=== PATIENT | female | born 1965 | race Caucasian/White ===

== ENCOUNTER 2018-12-25 20:36 | Emergency (ER) | payer SELFPAY ==
[~2018-12-25] VITALS: Ht 162.6 cm; Wt 71.7 kg
[~2018-12-25 20:36] MED LIST: CALCIUM CARBON500 MG PO; MULTI-VITAMIN1 EACH PO; ULTRAM 50MG50 MG PO; VITAMIN D3 PO
--- OUTSIDE RECORDS SUMMARY | 2018-12-25 20:39 | XMS REPORT ---
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 Allergies, Adverse Reactions, Alerts Allergy Name Allergy Type Status Severity Reaction(s) Onset Date Inactive Date Treating Clinician Comments No Known Allergies DA Active U 2018-09-05 00:00:00 No Known Allergies DA Active U 2012-04-12 00:00:00 Medications This patient has no known medications. Encounters Start Date/Time End Date/Time Encounter Type Admission Type Attending Clinicians Care Facility Care Department Encounter ID 2019-02-10 00:00:00 2019-02-10 00:00:00 Outpatient [facility] [id number] 2019-01-14 00:00:00 2019-01-14 00:00:00 Outpatient [facility] [id number] 2018-12-15 10:12:08 2018-12-15 10:12:08 Outpatient [facility] [id number] 2018-12-15 08:41:22 2018-12-15 08:41:22 Outpatient [facility] [id number] 2018-12-15 00:00:00 2018-12-15 00:00:00 Outpatient [facility] [id number] 2018-10-22 08:25:24 2018-10-22 08:25:24 Outpatient [facility] [id number] 2018-10-22 07:53:02 2018-10-22 07:53:02 Outpatient [facility] [id number] 2018-10-19 09:42:13 2018-10-19 09:42:13 Outpatient [facility] [id number] 2018-10-14 10:49:53 2018-10-14 10:49:53 Outpatient [facility] [id number] 2018-10-14 09:51:42 2018-10-14 09:51:42 Outpatient [facility] [id number] Results Test Description Test Time Test Comments Text Results Atomic Results Result Comments CBC W/MANUAL DIFF 2018-09-05 15:45:00 WHITE BLOOD CELL (test code=WBC) 4.8 K/mm3 4.5-12.5 RED BLOOD CELL (test code=RBC) 4.86 mill/mm3 3.7-5.2 HEMOGLOBIN (test code=HGB) 13.8 gram/dL 11.5-15.5 HEMATOCRIT (test code=HCT) 44.4 % 36.0-46.0 MEAN CELL VOLUME (test code=MCV) 91.4 fL 80-98 MEAN CELL HGB (test code=MCH) 28.4 picogram 27.0-33.0 MEAN CELL HGB CONCETRATION (test code=MCHC) 31.1 gram/dL 33.0-36.0 RED CELL DISTRIBUTION WIDTH (test code=RDW) 13.6 % 11.6-16.2 RED CELL DISTRIBUTION WIDTH SD (test code=RDW-SD) 46.1 fL 37.0-51.0 PLATELET COUNT (test code=PLT) 148 K/mm3 150-450 MEAN PLATELET VOLUME (test code=MPV) 12.5 fL 6.7-11.0 IMMATURE GRANULOCYTE % (test code=IG%) 0.2 % 0.0-5.0 NUCLEATED RBC % (test code=NRBC%) 0.0 % 0-0 NEUTROPHIL # (test code=NT#) 1.97 K/mm3 1.8-7.7 IMMATURE GRANULOCYTE # (test code=IG#) 0.01 x10 3/uL 0-0.03 LYMPHOCYTE # (test code=LY#) 1.83 K/mm3 1.0-5.0 MONOCYTE # (test code=MO#) 0.92 K/mm3 0-0.8 EOSINOPHIL # (test code=EO#) 0.08 K/mm3 0.0-0.5 BASOPHIL # (test code=BA#) 0.03 K/mm3 0.0-0.2 NUCLEATED RBC # (test code=NRBC#) 0.00 K/mm3 0.0-0.1 MANUAL DIFF REQUIRED (test code=MDIFF) YES STAIN ACCEPTABILITY (test code=STN ACCEPTABLE) STAIN ACCEPTABLE TOTAL CELLS COUNTED (test code=TCC) 100 #CELLS SEGMENTED NEUTROPHILS (test code=SEG) 32 % 39-69 LYMPHOCYTE (test code=LYMPH) 49 % 25-55 REACTIVE LYMPH (test code=RELYMPH) 4 % MONOCYTE (test code=MON) 12 % 0-10 EOSINOPHIL (test code=EOS) 1 % 0.0-5.0 BASOPHIL (test code=BASO) 2 % 0-1.0 POIKILOCYTOSIS (test code=POIK) 1+ ANISOCYTOSIS (test code=ANISO) 1+ PLATELET ESTIMATE (test code=PLTEST) ADEQUATE PLATELET MORPHOLOGY (test code=PLTMORPH) SIZE VARIABLE URINALYSIS [id number] 13:16:00* Test Item Value Reference Range Comments UA COLOR (test code=COLU) LIGHT YELLOW YELLOW UA APPEARANCE (test code=APPU) SLIGHTLY CLOUDY CLEAR UA GLUCOSE DIPSTICK (test code=DGLUU) NEGATIVE mg/dL NEGATIVE UA BILIRUBIN DIPSTICK (test code=BILU) NEGATIVE mg/dL NEGATIVE UA KETONE DIPSTICK (test code=KETU) Negative mg/dL NEGATIVE UA SPECIFIC GRAVITY (test code=SGU) 1.008 1.001-1.035 UA BLOOD DIPSTICK (test code=FRANSICO) Negative NEGATIVE UA PH DIPSTICK (test code=ELISABET) 9.0 5.0-8.0 UA PROTEIN DIPSTICK (test code=PROU) Negative mg/dL NEGATIVE UA UROBILINIOGEN DIPSTICK (test code=URO) NEGATIVE mg/dL NEGATIVE UA NITRITE DIPSTICK (test code=ESTEBAN) NEGATIVE NEGATIVE UA LEUKOCYTE ESTERASE W REFLEX (test code=LEUUR) NEGATIVE NEGATIVE UA WBC (test code=WBCU) 0-5 #/HPF 0-5 UA RBC (test code=RBCU) 0-2 #/HPF 0-5 UA EPITHELIAL CELLS (test code=EPIU) FEW per HPF FEW UA BACTERIA (test code=BACU) FEW #/HPF NONE UA MUCUS (test code=MUCU) FEW #/LPF FEW Urine Source? Clean CatchUR HCG [id number] 13:16:00* Test Item Value Reference Range Comments UR HCG QUAL (test code=HCGQLU) NEGATIVE This HCGQL test is NOT applicable for MALE patients.Check with nurse about probable order error.If Tumor Marker Test needed, nurse should order test "HCGTU"(Test #550.16562) Urine Source? Clean CatchURINALYSIS [id number] 12:40:00* Test Item Value Reference Range Comments UA COLOR (test code=COLU) LIGHT YELLOW YELLOW UA APPEARANCE (test code=APPU) SLIGHTLY CLOUDY CLEAR UA GLUCOSE DIPSTICK (test code=DGLUU) NEGATIVE mg/dL NEGATIVE UA BILIRUBIN DIPSTICK (test code=BILU) NEGATIVE mg/dL NEGATIVE UA KETONE DIPSTICK (test code=KETU) Negative mg/dL NEGATIVE UA SPECIFIC GRAVITY (test code=SGU) 1.008 1.001-1.035 UA BLOOD DIPSTICK (test code=FRANSICO) Negative NEGATIVE UA PH DIPSTICK (test code=ELISABET) 9.0 5.0-8.0 UA PROTEIN DIPSTICK (test code=PROU) Negative mg/dL NEGATIVE UA UROBILINIOGEN DIPSTICK (test code=URO) NEGATIVE mg/dL NEGATIVE UA NITRITE DIPSTICK (test code=ESTEBAN) NEGATIVE NEGATIVE UA LEUKOCYTE ESTERASE W REFLEX (test code=LEUUR) NEGATIVE NEGATIVE UA WBC (test code=WBCU) per HPF 0-5 Urine Source? Clean CatchUR HCG [id number] 12:40:00* Test Item Value Reference Range Comments UR HCG QUAL (test code=HCGQLU) NEGATIVE This HCGQL test is NOT applicable for MALE patients.Check with nurse about probable order error.If Tumor Marker Test needed, nurse should order test "HCGTU"(Test #550.37200) Urine Source? Clean CatchCBC W/MANUAL [id number] 12:37:00* Test Item Value Reference Range Comments WHITE BLOOD CELL (test code=WBC) 4.8 K/mm3 4.5-12.5 RED BLOOD CELL (test code=RBC) 4.86 mill/mm3 3.7-5.2 HEMOGLOBIN (test code=HGB) 13.8 gram/dL 11.5-15.5 HEMATOCRIT (test code=HCT) 44.4 % 36.0-46.0 MEAN CELL VOLUME (test code=MCV) 91.4 fL 80-98 MEAN CELL HGB (test code=MCH) 28.4 picogram 27.0-33.0 MEAN CELL HGB CONCETRATION (test code=MCHC) 31.1 gram/dL 33.0-36.0 RED CELL DISTRIBUTION WIDTH (test code=RDW) 13.6 % 11.6-16.2 RED CELL DISTRIBUTION WIDTH SD (test code=RDW-SD) 46.1 fL 37.0-51.0 PLATELET COUNT (test code=PLT) 148 K/mm3 150-450 MEAN PLATELET VOLUME (test code=MPV) 12.5 fL 6.7-11.0 IMMATURE GRANULOCYTE % (test code=IG%) 0.2 % 0.0-5.0 NUCLEATED RBC % (test code=NRBC%) 0.0 % 0-0 NEUTROPHIL # (test code=NT#) 1.97 K/mm3 1.8-7.7 IMMATURE GRANULOCYTE # (test code=IG#) 0.01 x10 3/uL 0-0.03 LYMPHOCYTE # (test code=LY#) 1.83 K/mm3 1.0-5.0 MONOCYTE # (test code=MO#) 0.92 K/mm3 0-0.8 EOSINOPHIL # (test code=EO#) 0.08 K/mm3 0.0-0.5 BASOPHIL # (test code=BA#) 0.03 K/mm3 0.0-0.2 NUCLEATED RBC # (test code=NRBC#) 0.00 K/mm3 0.0-0.1 MANUAL DIFF REQUIRED (test code=MDIFF) YES STAIN ACCEPTABILITY (test code=STN ACCEPTABLE) TOTAL CELLS COUNTED (test code=TCC) #CELLS SEGMENTED NEUTROPHILS (test code=SEG) % 39-69 LYMPHOCYTE (test code=LYMPH) % 25-55 MONOCYTE (test code=MON) % 0-10 EOSINOPHIL (test code=EOS) % 0.0-5.0 CABOT RINGS (test code=CAB) MORPHOLOGY COMMENT (test code=MOC) PLATELET ESTIMATE (test code=PLTEST) PLATELET MORPHOLOGY (test code=PLTMORPH) CBC W/MANUAL [id number] 12:37:00* Test Item Value Reference Range Comments WHITE BLOOD CELL (test code=WBC) 4.8 K/mm3 4.5-12.5 RED BLOOD CELL (test code=RBC) 4.86 mill/mm3 3.7-5.2 HEMOGLOBIN (test code=HGB) 13.8 gram/dL 11.5-15.5 HEMATOCRIT (test code=HCT) 44.4 % 36.0-46.0 MEAN CELL VOLUME (test code=MCV) 91.4 fL 80-98 MEAN CELL HGB (test code=MCH) 28.4 picogram 27.0-33.0 MEAN CELL HGB CONCETRATION (test code=MCHC) 31.1 gram/dL 33.0-36.0 RED CELL DISTRIBUTION WIDTH (test code=RDW) 13.6 % 11.6-16.2 RED CELL DISTRIBUTION WIDTH SD (test code=RDW-SD) 46.1 fL 37.0-51.0 PLATELET COUNT (test code=PLT) 148 K/mm3 150-450 MEAN PLATELET VOLUME (test code=MPV) 12.5 fL 6.7-11.0 IMMATURE GRANULOCYTE % (test code=IG%) 0.2 % 0.0-5.0 NUCLEATED RBC % (test code=NRBC%) 0.0 % 0-0 NEUTROPHIL # (test code=NT#) 1.97 K/mm3 1.8-7.7 IMMATURE GRANULOCYTE # (test code=IG#) 0.01 x10 3/uL 0-0.03 LYMPHOCYTE # (test code=LY#) 1.83 K/mm3 1.0-5.0 MONOCYTE # (test code=MO#) 0.92 K/mm3 0-0.8 EOSINOPHIL # (test code=EO#) 0.08 K/mm3 0.0-0.5 BASOPHIL # (test code=BA#) 0.03 K/mm3 0.0-0.2 NUCLEATED RBC # (test code=NRBC#) 0.00 K/mm3 0.0-0.1 MANUAL DIFF REQUIRED (test code=MDIFF) YES STAIN ACCEPTABILITY (test code=STN ACCEPTABLE) TOTAL CELLS COUNTED (test code=TCC) #CELLS SEGMENTED NEUTROPHILS (test code=SEG) % 39-69 LYMPHOCYTE (test code=LYMPH) % 25-55 MONOCYTE (test code=MON) % 0-10 EOSINOPHIL (test code=EOS) % 0.0-5.0 CABOT RINGS (test code=CAB) MORPHOLOGY COMMENT (test code=MOC) PLATELET ESTIMATE (test code=PLTEST) PLATELET MORPHOLOGY (test code=PLTMORPH) CBC W/MANUAL [id number] 12:37:00* Test Item Value Reference Range Comments WHITE BLOOD CELL (test code=WBC) 4.8 K/mm3 4.5-12.5 RED BLOOD CELL (test code=RBC) 4.86 mill/mm3 3.7-5.2 HEMOGLOBIN (test code=HGB) 13.8 gram/dL 11.5-15.5 HEMATOCRIT (test code=HCT) 44.4 % 36.0-46.0 MEAN CELL VOLUME (test code=MCV) 91.4 fL 80-98 MEAN CELL HGB (test code=MCH) 28.4 picogram 27.0-33.0 MEAN CELL HGB CONCETRATION (test code=MCHC) 31.1 gram/dL 33.0-36.0 RED CELL DISTRIBUTION WIDTH (test code=RDW) 13.6 % 11.6-16.2 RED CELL DISTRIBUTION WIDTH SD (test code=RDW-SD) 46.1 fL 37.0-51.0 PLATELET COUNT (test code=PLT) 148 K/mm3 150-450 MEAN PLATELET VOLUME (test code=MPV) 12.5 fL 6.7-11.0 IMMATURE GRANULOCYTE % (test code=IG%) 0.2 % 0.0-5.0 NUCLEATED RBC % (test code=NRBC%) 0.0 % 0-0 NEUTROPHIL # (test code=NT#) 1.97 K/mm3 1.8-7.7 IMMATURE GRANULOCYTE # (test code=IG#) 0.01 x10 3/uL 0-0.03 LYMPHOCYTE # (test code=LY#) 1.83 K/mm3 1.0-5.0 MONOCYTE # (test code=MO#) 0.92 K/mm3 0-0.8 EOSINOPHIL # (test code=EO#) 0.08 K/mm3 0.0-0.5 BASOPHIL # (test code=BA#) 0.03 K/mm3 0.0-0.2 NUCLEATED RBC # (test code=NRBC#) 0.00 K/mm3 0.0-0.1 MANUAL DIFF REQUIRED (test code=MDIFF) YES STAIN ACCEPTABILITY (test code=STN ACCEPTABLE) TOTAL CELLS COUNTED (test code=TCC) #CELLS SEGMENTED NEUTROPHILS (test code=SEG) % 39-69 LYMPHOCYTE (test code=LYMPH) % 25-55 MONOCYTE (test code=MON) % 0-10 EOSINOPHIL (test code=EOS) % 0.0-5.0 MORPHOLOGY COMMENT (test code=MOC) PLATELET ESTIMATE (test code=PLTEST) PLATELET MORPHOLOGY (test code=PLTMORPH) CBC W/MANUAL [id number] 12:37:00* Test Item Value Reference Range Comments WHITE BLOOD CELL (test code=WBC) 4.8 K/mm3 4.5-12.5 RED BLOOD CELL (test code=RBC) 4.86 mill/mm3 3.7-5.2 HEMOGLOBIN (test code=HGB) 13.8 gram/dL 11.5-15.5 HEMATOCRIT (test code=HCT) 44.4 % 36.0-46.0 MEAN CELL VOLUME (test code=MCV) 91.4 fL 80-98 MEAN CELL HGB (test code=MCH) 28.4 picogram 27.0-33.0 MEAN CELL HGB CONCETRATION (test code=MCHC) 31.1 gram/dL 33.0-36.0 RED CELL DISTRIBUTION WIDTH (test code=RDW) 13.6 % 11.6-16.2 RED CELL DISTRIBUTION WIDTH SD (test code=RDW-SD) 46.1 fL 37.0-51.0 PLATELET COUNT (test code=PLT) 148 K/mm3 150-450 MEAN PLATELET VOLUME (test code=MPV) 12.5 fL 6.7-11.0 IMMATURE GRANULOCYTE % (test code=IG%) 0.2 % 0.0-5.0 NUCLEATED RBC % (test code=NRBC%) 0.0 % 0-0 NEUTROPHIL # (test code=NT#) 1.97 K/mm3 1.8-7.7 IMMATURE GRANULOCYTE # (test code=IG#) 0.01 x10 3/uL 0-0.03 LYMPHOCYTE # (test code=LY#) 1.83 K/mm3 1.0-5.0 MONOCYTE # (test code=MO#) 0.92 K/mm3 0-0.8 EOSINOPHIL # (test code=EO#) 0.08 K/mm3 0.0-0.5 BASOPHIL # (test code=BA#) 0.03 K/mm3 0.0-0.2 NUCLEATED RBC # (test code=NRBC#) 0.00 K/mm3 0.0-0.1 MANUAL DIFF REQUIRED (test code=MDIFF) YES STAIN ACCEPTABILITY (test code=STN ACCEPTABLE) TOTAL CELLS COUNTED (test code=TCC) #CELLS SEGMENTED NEUTROPHILS (test code=SEG) % 39-69 LYMPHOCYTE (test code=LYMPH) % 25-55 MONOCYTE (test code=MON) % 0-10 MORPHOLOGY COMMENT (test code=MOC) PLATELET ESTIMATE (test code=PLTEST) PLATELET MORPHOLOGY (test code=PLTMORPH) CBC W/MANUAL [id number] 12:37:00* Test Item Value Reference Range Comments WHITE BLOOD CELL (test code=WBC) 4.8 K/mm3 4.5-12.5 RED BLOOD CELL (test code=RBC) 4.86 mill/mm3 3.7-5.2 HEMOGLOBIN (test code=HGB) 13.8 gram/dL 11.5-15.5 HEMATOCRIT (test code=HCT) 44.4 % 36.0-46.0 MEAN CELL VOLUME (test code=MCV) 91.4 fL 80-98 MEAN CELL HGB (test code=MCH) 28.4 picogram 27.0-33.0 MEAN CELL HGB CONCETRATION (test code=MCHC) 31.1 gram/dL 33.0-36.0 RED CELL DISTRIBUTION WIDTH (test code=RDW) 13.6 % 11.6-16.2 RED CELL DISTRIBUTION WIDTH SD (test code=RDW-SD) 46.1 fL 37.0-51.0 PLATELET COUNT (test code=PLT) 148 K/mm3 150-450 MEAN PLATELET VOLUME (test code=MPV) 12.5 fL 6.7-11.0 IMMATURE GRANULOCYTE % (test code=IG%) 0.2 % 0.0-5.0 NUCLEATED RBC % (test code=NRBC%) 0.0 % 0-0 NEUTROPHIL # (test code=NT#) 1.97 K/mm3 1.8-7.7 IMMATURE GRANULOCYTE # (test code=IG#) 0.01 x10 3/uL 0-0.03 LYMPHOCYTE # (test code=LY#) 1.83 K/mm3 1.0-5.0 MONOCYTE # (test code=MO#) 0.92 K/mm3 0-0.8 EOSINOPHIL # (test code=EO#) 0.08 K/mm3 0.0-0.5 BASOPHIL # (test code=BA#) 0.03 K/mm3 0.0-0.2 NUCLEATED RBC # (test code=NRBC#) 0.00 K/mm3 0.0-0.1 MANUAL DIFF REQUIRED (test code=MDIFF) YES STAIN ACCEPTABILITY (test code=STN ACCEPTABLE) TOTAL CELLS COUNTED (test code=TCC) #CELLS SEGMENTED NEUTROPHILS (test code=SEG) % 39-69 LYMPHOCYTE (test code=LYMPH) % 25-55 MONOCYTE (test code=MON) % 0-10 EOSINOPHIL (test code=EOS) % 0.0-5.0 CABOT RINGS (test code=CAB) MORPHOLOGY COMMENT (test code=MOC) PLATELET ESTIMATE (test code=PLTEST) PLATELET MORPHOLOGY (test code=PLTMORPH) BASIC METABOLIC [id number] 12:20:00* Test Item Value Reference Range Comments SODIUM (test code=NA) 138 mmol/L 136-145 POTASSIUM (test code=K) 5.0 mmol/L 3.5-5.1 CHLORIDE (test code=CL) 109.0 mmol/L 98-107 CARBON DIOXIDE (test code=CO2) 24.0 mmol/L 21-32 ANION GAP (test code=GAP) 10.0 10-20 GLUCOSE (test code=GLU) 104 mg/dL 74-106 BLOOD UREA NITROGEN (test code=BUN) 10 mg/dL 7-18 GLOMERULAR FILTRATION RATE (test code=GFR) > 60 mL/min >=60 Estimated GFR by using Modified MDRD formula.Chronic kidney disease is defined as either kidney damageor GFR <60 mL/min/1.73 m2 for >3 months. CREATININE (test code=CREAT) 0.40 mg/dL 0.55-1.02 Note change in reference range due to change in reagent. BUN/CREATININE RATIO (test code=BUN/CREA) 25.8 10-20 CALCIUM (test code=CA) 8.8 mg/dL 8.5-10.1 [id number] 12:20:00* Test Item Value Reference Range Comments MAGNESIUM (test code=MAG) 2.0 mg/dL 1.8-2.4 THYROID PROFILE [id number] 12:20:00* Test Item Value Reference Range Comments T3 UPTAKE (test code=T3UP) 43.0 % 30.0-40.0 T4 (THYROXINE) (test code=T4) 23.0 ug/dL 4.5-13.9 T7 (FREE THYROXINE INDEX) (test code=T7) 9.89 FTI 1.3-5.1 THYROID STIMULATING HORMONE (test code=TSH) < 0.005 uIU/mL 0.36-3.74 TSH REFERENCE RANGES: EUTHYROID: 0.35 - 4.3 mIU/mL HYPO : > 5.5 mIU/mL HYPER : < 0.35 mIU/mL URINALYSIS [id number] 12:19:00* Test Item Value Reference Range Comments UA COLOR (test code=COLU) YELLOW UA APPEARANCE (test code=APPU) CLEAR UA BILIRUBIN DIPSTICK (test code=BILU) NEGATIVE UA SPECIFIC GRAVITY (test code=SGU) 1.001-1.035 UA PH DIPSTICK (test code=ELISABET) 5.0-8.0 UA UROBILINIOGEN DIPSTICK (test code=URO) mg/dL 0.0-0.2 UA NITRITE DIPSTICK (test code=ESTEBAN) NEGATIVE UA LEUKOCYTE ESTERASE W REFLEX (test code=LEUUR) NEGATIVE UA WBC (test code=WBCU) per HPF 0-5 Urine Source? Clean CatchUR HCG [id number] 12:19:00* Test Item Value Reference Range Comments UR HCG QUAL (test code=HCGQLU) NEGATIVE This HCGQL test is NOT applicable for MALE patients.Check with nurse about probable order error.If Tumor Marker Test needed, nurse should order test "HCGTU"(Test #550.54201) Urine Source? Clean CatchCBC W/AUTO [id number] 12:16:00* Test Item Value Reference Range Comments WHITE BLOOD CELL (test code=WBC) K/mm3 4.5-12.5 RED BLOOD CELL (test code=RBC) mill/mm3 3.7-5.2 HEMOGLOBIN (test code=HGB) 13.8 gram/dL 11.5-15.5 HEMATOCRIT (test code=HCT) 44.4 % 36.0-46.0 MEAN CELL VOLUME (test code=MCV) fL 80-98 MEAN CELL HGB (test code=MCH) picogram 27.0-33.0 MEAN CELL HGB CONCETRATION (test code=MCHC) gram/dL 33.0-36.0 RED CELL DISTRIBUTION WIDTH (test code=RDW) % 11.6-16.2 RED CELL DISTRIBUTION WIDTH SD (test code=RDW-SD) fL 37.0-51.0 PLATELET COUNT (test code=PLT) K/mm3 150-450 MEAN PLATELET VOLUME (test code=MPV) fL 6.7-11.0 NEUTROPHIL % (test code=NT%) % 39.0-69.0 IMMATURE GRANULOCYTE % (test code=IG%) % 0.0-5.0 LYMPHOCYTE % (test code=LY%) % 25.0-55.0 MONOCYTE % (test code=MO%) % 0.0-10.0 EOSINOPHIL % (test code=EO%) % 0.0-5.0 BASOPHIL % (test code=BA%) % 0.0-1.0 NEUTROPHIL # (test code=NT#) K/mm3 1.8-7.7 LYMPHOCYTE # (test code=LY#) K/mm3 1.0-5.0 MONOCYTE # (test code=MO#) K/mm3 0-0.8 EOSINOPHIL # (test code=EO#) K/mm3 0.0-0.5 BASOPHIL # (test code=BA#) K/mm3 0.0-0.2 - XR CHEST 1 [id number] 10:59:00 FAX: Courtney Luna [phone] [place]: [address] St: REG Name: LEN RAMSAY [facility] : [birth year] Age/S: 53/F Cira Brink [facility] Unit #: [id number] Loc: LONNY Gutierrez [address] Phys: Courtney Acevedo MD Acct: [id number] Dis Date: Status: REG ER PHONE #: [phone] Exam Date: 09/05/2018 1050 FAX #: [phone] Reason: palpitations EXAMS: CPT CODE: [id number] XR CHEST 1 V [id number] HISTORY: Palpitations. COMPARISON: September 25, 2012. No acute infiltrates, effusion or c ongestion is noted. Hyperinflation. Calcified granuloma in the left cost ophrenic angle and left hilar region. Calcified left hilar nodes. Mild cardiomegaly. IMPRESSION: No acu te infiltrates, effusion or congestion. Hyperinflation. Electronica lly Signed by Ellen Diaz on 09/05/2018 at 1051 Re ported and signed by: Mani Diaz M.D. CC: Fabián Acevedo MD Technologist: MELISSA WILKINSON RT( R) Trnscrd Date/Time/By: 09/05/2018 (0744) : By : [email or web address] Orig Print D/T: S: 09/05/2018 (7234) PAGE 1 Signed Report HIV- 1 ANTIGEN WITH HIV-1/2 [id number] 17:34:00* Test Item Value Reference Range Comments HIV-1 ANTIGEN WITH HIV 1\\T\\2 ANTIBODY (2) (IHSAN) (test ognb=2526) Nonreactive Nonreactive MISCELLANEOUS LAB [id number] 08:53:00* Test Item Value Reference Range Comments SCAN RESULT (test yrmr=[id number]) HEPATITIS C PCR, [id number] 19:44:00* Test Item Value Reference Range Comments HCV NUMERIC RESULT (IHSAN) (test mauy=6201) [id number] IU/mL <15 This test uses a Real-Time Polymerase Chain Reaction (RT-PCR) methodology and wa s performed using FRANCES Ampliprep/FRANCES TaqMan HCV test kit version 2.0 ([employer]).Reportable range for this assay is 15 - 100,000,000 IU per mL (1.18 - 8.00 Log IU/mL).ANTI-NUCLEAR ANTIBODY (MOLINA)2016-09-16 14:12:00* Test Item Value Reference Range Comments ANTI-NUCLEAR ANTIBODY (MOLINA) (BEAKER) (test oxay=669) Negative Negative CBC W/PLT COUNT & AUTO [id number] 17:54:00* Test Item Value Reference Range Comments WHITE BLOOD CELL COUNT (BEAKER) (test ydep=308) 9.0 K/ L 4.0-10.0 RED BLOOD CELL COUNT (BEAKER) (test yehv=120) 5.18 M/ L 4.00-5.00 HEMOGLOBIN (BEAKER) (test jzny=729) 16.2 GM/DL 12.0-15.0 HEMATOCRIT (BEAKER) (test ggrm=731) 48.5 % 36.0-45.0 MEAN CORPUSCULAR VOLUME (BEAKER) (test ctla=828) 93.6 fL 82.0-99.0 MEAN CORPUSCULAR HEMOGLOBIN (BEAKER) (test dttr=870) 31.4 pg 27.0-33.0 MEAN CORPUSCULAR HEMOGLOBIN CONC (BEAKER) (test ocag=203) 33.5 GM/DL 32.0-36.0 RED CELL DISTRIBUTION WIDTH (BEAKER) (test xbyh=316) 12.8 % 10.3-14.2 PLATELET COUNT (BEAKER) (test lxne=389) 213 K/CU MM 150-430 MEAN PLATELET VOLUME (BEAKER) (test fdiw=956) 9.3 fL 6.5-10.5 NUCLEATED RED BLOOD CELLS (BEAKER) (test zfem=046) 0 /100 WBC 0-0 NEUTROPHILS RELATIVE PERCENT (BEAKER) (test lggz=480) 59 % LYMPHOCYTES RELATIVE PERCENT (BEAKER) (test nwxn=573) 33 % MONOCYTES RELATIVE PERCENT (BEAKER) (test zclw=737) 7 % EOSINOPHILS RELATIVE PERCENT (BEAKER) (test srze=823) 1 % BASOPHILS RELATIVE PERCENT (BEAKER) (test wilj=911) 1 % NEUTROPHILS ABSOLUTE COUNT (BEAKER) (test ruft=242) 5.29 K/ L 1.80-8.00 LYMPHOCYTES ABSOLUTE COUNT (BEAKER) (test xzbu=345) 2.92 K/ L 1.48-4.50 MONOCYTES ABSOLUTE COUNT (BEAKER) (test scre=382) 0.61 K/ L 0.00-1.30 EOSINOPHILS ABSOLUTE COUNT (BEAKER) (test gtvq=579) 0.11 K/ L 0.00-0.50 BASOPHILS ABSOLUTE COUNT (BEAKER) (test qovn=406) 0.06 K/ L 0.00-0.20 0.00HEPATITIS B SURFACE [id number] 16:59:00* Test Item Value Reference Range Comments HEPATITIS B SURFACE ANTIBODY (BEAKER) (test xvav=036) < mIU/mL <8.0 HEPATITIS A ANTIBODY, [id number] 16:59:00* Test Item Value Reference Range Comments HEPATITIS A IGG ANTIBODY (BEAKER) (test qufl=0000) Reactive Nonreactive ALPHA FETOPROTEIN (AFP), TUMOR [id number] 16:58:00* Test Item Value Reference Range Comments ALPHA-FETOPROTEIN (BEAKER) (test uxgf=9589) 3.7 ng/mL <10.0 Effective 05/30/2014: Reference Range ChangeNew: <10.0 Previous: 0.0-8.0 HEPATITIS B CORE ANTIBODY, [id number] 16:58:00* Test Item Value Reference Range Comments HEPATITIS B CORE TOTAL ANTIBODY (BEAKER) (test ymis=833) Nonreactive Nonreactive HEPATITIS B SURFACE [id number] 16:46:00* Test Item Value Reference Range Comments HEPATITIS B SURFACE ANTIGEN (2) (BEAKER) (test dpxv=0206) Nonreactive Nonreactive [id number] 16:18:00* Test Item Value Reference Range Comments FERRITIN (BEAKER) (test kffs=449) 80 ng/mL 5-275 Effective 05/30/2014: Reference Range ChangeNew: Male 5-275 Previous: Male 22-322 Female 5-275 Female 10-291 RAPID DRUG SCREEN, URINE 2016-09-15 15:27:00* Test Item Value Reference Range Comments BARBITURATE URINE (BEAKER) (test bodm=135) Positive Negative BENZODIAZEPINE SCREEN URINE (BEAKER) (test qgbh=254) Negative Negative COCAINE (METAB.) SCREEN (BEAKER) (test stxr=1225) Negative Negative METHADONE SCREEN (BEAKER) (test nstw=8605) Negative Negative OPIATE SCREEN URINE (BEAKER) (test xpai=452) Negative Negative CANNABINOID SCREEN URINE (BEAKER) (test zjkx=767) Negative Negative AMPH/METHAMPH SCREEN (BEAKER) (test wwrc=9098) Negative Negative PHENCYCLIDINE SCREEN URINE (BEAKER) (test lxrs=779) Negative Negative OXYCODONE SCREEN URINE (BEAKER) (test vxcg=9908) Negative Negative DRUG CUTOFF CONC.Cocaine 300 ng/mL Cannabinoid 50 ng/mL Benzodiazepine 200 ng/mLBarbiturate 200 ng/mLPh encyclidine 25 ng/mLOpiate 300 ng/mLMethadone 300 ng/mLAmphetamine/ 1000 ng/mL MethamphetamineOxycodone 300 ng/mLIRON, TIBC, % SAT. (WITHOUT FERRITIN)2016-09-15 15:23:00* Test Item Value Reference Range Comments IRON (BEAKER) (test ohvz=741) 133 ug/dL 40-160 TOTAL IRON BINDING CAPACITY (BEAKER) (test llhq=781) 395 ug/dL 250-450 IRON % SATURATION (2) (BEAKER) (test yotj=5762) 34 % 20-55 COMPREHENSIVE METABOLIC [id number] 15:22:00* Test Item Value Reference Range Comments TOTAL PROTEIN (BEAKER) (test ltho=279) 8.0 gm/dL 6.0-8.3 ALBUMIN (BEAKER) (test erbm=0501) 4.3 g/dL 3.5-5.0 ALKALINE PHOSPHATASE (BEAKER) (test rqjr=829) 47 U/L 40-150 BILIRUBIN TOTAL (BEAKER) (test chnr=715) 0.3 mg/dL 0.2-1.2 SODIUM (BEAKER) (test ckdz=663) 141 meq/L 136-145 POTASSIUM (BEAKER) (test ecwu=957) 4.4 meq/L 3.5-5.1 CHLORIDE (BEAKER) (test hnna=778) 105 meq/L 98-107 CO2 (BEAKER) (test etqo=119) 22 meq/L 22-29 BLOOD UREA NITROGEN (BEAKER) (test brcc=628) 11 mg/dL 7-21 CREATININE (BEAKER) (test bqnr=991) 0.68 mg/dL 0.57-1.25 GLUCOSE RANDOM (BEAKER) (test nfxr=740) 68 mg/dL 70-105 CALCIUM (BEAKER) (test uskj=673) 10.3 mg/dL 8.4-10.2 AST (SGOT) (BEAKER) (test miev=407) 37 U/L 5-34 ALT (SGPT) (BEAKER) (test umqs=497) 72 U/L 6-55 EGFR (BEAKER) (test iexf=9873) 91 mL/min/1.73 sq m ESTIMATED GFR IS NOT ACCURATE CREATININE CLEARANCE IN PREDICTING GLOMERULAR FILTRATION RATE. ESTIMATED GFR IS NOT APPLICABLE FOR DIALYSIS PATIENTS. BILIRUBIN, [id number] 15:22:00* Test Item Value Reference Range Comments BILIRUBIN DIRECT (BEAKER) (test afte=756) 0.2 mg/dL 0.1-0.5 [id number] 15:20:00* Test Item Value Reference Range Comments ETHANOL (BEAKER) (test sspj=247) < mg/dL <=10 MRI FEMUR RIGHT WOW [place] [address] Patient Name: LEN HOOKER MR #: [id number] : 1965 Age/Sex: 51/F Req #: [id number] Adm Physician: Ordered by: LYNDSEY BEARDEN MD Report #: [id number] Location: MRI Room/Bed: Procedure: [id number] MRI/MRI FEMUR RIGHT WOW Exam Date: Exam Time: REPORT STATUS: Signed ROSALIO HNIQUE: Magnetic resonance imaging of the right femur was performed without an d with injected contrast. 6.5 mL of gadolinium this administered. HISTORY : Remote trauma and hardware removal. Recurrent pain. COMPARISON: None avail able. FINDINGS: Healed post traumatic deformity of the right mid femo ral diaphysis with callus formation. The cortex is thickened with hyperintense granulation tissue within the medullary cavity. Areas of susceptibility artifact related to prior hardware placement and removal. Otherwise the b one marrow signal is normal. Muscle bulk intact. No atrophy. No muscul ar edema. No soft tissue mass. IMPRESSION: Healed posttraumat ic deformity of the mid right femur with expected appearance after hardware re moval. Soft tissues are unremarkable. Signed by: Donovan Smith on 02/26/2017 4:07 PM Dictated By: SANDRA BOYD MD [id number] Transcribed By: LORA on 2 COPY TO: LYNDSEY BEARDEN MD
--- OUTSIDE RECORDS SUMMARY | 2018-12-25 20:39 | XMS REPORT | Clinical Summary ---
Author Author MARCO ANTONIO [facility] Address Unknown Phone Unavailable Care Team Providers Care Coroner Forensic Technician Name Role Phone EleuterioTho dejesus PCP Allergies Comments Active Allergy Reactions Severity Noted Date No Known Allergies 10/16/2016 Medications End Date Status Medication Sig Dispensed Refills Start Date Active methIMAzole (TAPAZOLE) 5 0 09/14/201 MG tabletIndications: 7 Chronic hepatitis C without hepatic coma (HCC) Active multivitamin per Take 1 tablet 0 tabletIndications: by mouth Chronic hepatitis C daily. without hepatic coma (HCC) Active calcium carbonate-vitamin Take 1 tablet 0 D3 (CALCIUM-VITAMIN D) by mouth 2 500 mg(1,250mg) -200 unit (two) times per tabletIndications: daily with Chronic hepatitis C breakfast and without hepatic coma dinner. (HCC) Active cholecalciferol (VITAMIN Take 1,000 0 D3) 1,000 unit Units by tabletIndications: mouth daily. Chronic hepatitis C without hepatic coma (HCC) Active omega-3 fatty Take by 0 acids-vitamin E 1,000 mg mouth. CapIndications: Chronic hepatitis C without hepatic coma (HCC) Active Problems Problem Noted Date Chronic hepatitis C without hepatic coma 09/15/2016 Last Assessment & Plan: She had history of hepatitis C. Unknown genotype or viral load. Treatment naive. No cirrhosis per history and preliminary blood tests. We will order HCV genotype and viral load today along with ultrasound with elastography and Fibrosure to determine the degree of liver fibrosis. We will determine treatment regimens after we have all the information. We recommend screening for hepatitis C in her child considering 3-7% risk of vertical transmission. Immunity status testing 09/15/2016 Last Assessment & Plan: All patients with chronic liver disease, regardless of etiology, should be immunized to prevent hepatitis A and hepatitis B if they are not already immune. We will test for immunity to both viruses - vaccine recommendations will follow. Cocaine use 09/15/2016 Last Assessment & Plan: She had history of cocaine use. Last use was 2 years ago. We will check UDS today prior to starting treatment. Abnormal liver enzymes 09/15/2016 Last Assessment & Plan: She had mildly elevated ALT on blood test in July 2016. We will complete comprehensive work-up to rule out other causes of liver disease. Immunizations Name Dates Previously Given Next Due Hepatitis B 10/18/2016 Family History Medical History Relation Name Comments Diabetes Mother Heart disease Mother Relation Name Status Comments Mother Social History Date Tobacco Use Types Packs/Day Years Used Current Every Day Smoker 35 Alcohol Use Drinks/Week oz/Week Comments Yes Sex Assigned at Date Recorded Not on file Industry Job Start Date Occupation Not on file Not on file Not on file Travel End Travel History Travel Start No recent travel history available. Last Filed Vital Signs Not on file Plan of Treatment Health Maintenance Due Date Last Done Comments INFLUENZA VACCINE 04/12/2018 Results Not on fileafter 12/24/2017 Insurance Payer Benefit Subscriber ID Type Phone Address Plan / Group [facility] xxxxxxxxxxxx [facility] [employer] CHOICE POS
[2018-12-25] MEDS ORDERED: SODIUM CHLORIDE 0.9% 1000ML 1,000 ML IV STA (20:43)
[2018-12-25] MEDS ORDERED: MORPHINE SULFATE INJ 4 MG/ML INJ 1ML IV STA (20:43)
[2018-12-25] MEDS ORDERED: DICYCLOMINE HCL 20 MG/2 ML VIAL IM ONE (20:45)
[2018-12-25 20:59] LABS: BASOPHILS # (AUTO) 0.1 (0.0-0.1); BASOPHILS % 0.6 % (0.0-1.0); EOSINOPHILS # (AUTO) 0.2 (0.0-0.4); EOSINOPHILS % 1.5 % (0.0-6.0); HEMATOCRIT 41.6 % (34.2-44.1); HEMOGLOBIN 14.4 g/dL (12.0-16.0); LYMPHOCYTES # (AUTO) 3.2 (1.0-3.2); LYMPHOCYTES % 32.6 % (18.0-39.1); MEAN CORPUSCULAR HEMOGLOBIN 30.9 pg (28-32); MEAN CORPUSCULAR HGB CONC 34.6 g/dL (31-35); MEAN CORPUSCULAR VOLUME 89.3 fL (81-99); MONOCYTES # (AUTO) 0.7 (0.2-0.8); MONOCYTES % 7.5 % (4.4-11.3); NEUTROPHILS # (AUTO) 5.7 (2.1-6.9); NEUTROPHILS % 57.4 % (38.7-80.0); PLATELET COUNT 246 x10e3/uL (140-360); RED BLOOD COUNT 4.66 x10e6/uL (3.6-5.1); RED CELL DISTRIBUTION WIDTH 13.6 % (11.7-14.4)
[2018-12-25 21:11] LABS: BILIRUBIN,URINE NEGATIVE (NEGATIVE); CLARITY,URINE CLEAR (CLEAR); COLOR,URINE YELLOW (YELLOW); KETONES,URINE NEGATIVE (NEGATIVE); LEUKOCYTE ESTERASE ,URINE TRACE (NEGATIVE); NITRITE,URINE NEGATIVE (NEGATIVE); PROTEIN,URINE DIPSTICK 2+ (NEGATIVE); URINE UROBILINOGEN 0.2 mg/dL (0.2 - 1)
[2018-12-25 21:18] LABS: AMPHETAMINES SCREEN,URINE NEGATIVE (NEGATIVE); BENZODIAZEPINES SCREEN,URINE NEGATIVE (NEGATIVE); PHENCYCLIDINE SCREEN,URINE NEGATIVE (NEGATIVE)
[2018-12-25 21:23] LABS: PREGNANCY TEST, URINE NEGATIVE (NEGATIVE)
[2018-12-25 21:26] LABS: ALANINE AMINOTRANSFERASE 21 IU/L (0-55); ALBUMIN/GLOBULIN RATIO 1.1 (0.8-2.0); ALKALINE PHOSPHATASE 58 IU/L (40-150); ANION GAP 14.2 mmol/L (8-16); BLOOD UREA NITROGEN 15 mg/dL (7-26); BUN/CREATININE RATIO 21 (6-25); CALCIUM 9.6 mg/dL (8.4-10.2); CHLORIDE 95 mmol/L (98-107); EST GLOMERULAR FILTRATION RATE > 60 ML/MIN (60-); LIPASE 44 U/L (8-78); POTASSIUM 3.2 mmol/L (3.5-5.1); SODIUM 147 mmol/L (136-145)
[2018-12-25 21:27] LABS: BACTERIA,URINE RARE /HPF; EPITHELIAL CELLS,URINE RARE /LPF
[2018-12-25 21:41] LABS: CARBON DIOXIDE 41 mmol/L (22-29); GLUCOSE 53 mg/dL (74-118)
[2018-12-25] MEDS ORDERED: DEXTROSE 50% SYRINGE 50 ML IV ONE (21:46)
[2018-12-25] MEDS ORDERED: DEXTROSE 50% SYRINGE 50 ML IV STA (21:47)
[2018-12-25] MEDS ORDERED: POTASSIUM CHLORIDE 20MEQ/15ML UDC PO STA (21:50)
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
[2018-12-26] MEDS ORDERED: DICYCLOMINE HCL 20 MG/2 ML VIAL IM ONE (00:15)
[2018-12-26] MEDS ORDERED: IOPAMIDOL 370 MG/ML 200 ML INFUS..BTL INJ ONE (01:18)
[2018-12-26] MEDS ORDERED: SODIUM CHLORIDE 0.9% 50ML 50 ML ONE (01:18)
== END 2018-12-26 00:25 | disposition home or self-care (01) ==
LOC: ER 20:36
DX: K29.00 Acute gastritis without bleeding (principal); N30.00 Acute cystitis without hematuria; R11.2 Nausea with vomiting, unspecified; R10.32 Left lower quadrant pain; R10.31 Right lower quadrant pain; E05.90 Thyrotoxicosis, unspecified without thyrotoxic crisis or storm
CPT/HCPCS: 36415; 74177; 80053; 80307; 81001; 81025; 82948; 83690; 85025; 87086; 99284; J0500; J2270; J7030; J7799; Q9967

== ENCOUNTER 2021-08-11 11:18 | Inpatient (IN) | payer SELFPAY ==
[~2021-08-11] VITALS: Ht 154.9 cm; Wt 70.8 kg
[2021-08-11 11:52] LABS: BASOPHILS # (AUTO) 0.1 (0.0-0.1); BASOPHILS % 0.6 % (0.0-1.0); EOSINOPHILS # (AUTO) 0.7 (0.0-0.4); EOSINOPHILS % 6.4 % (0.0-6.0); HEMATOCRIT 42.3 % (34.2-44.1); HEMOGLOBIN 13.5 g/dL (12.0-16.0); LYMPHOCYTES # (AUTO) 2.2 (1.0-3.2); LYMPHOCYTES % 21.2 % (18.0-39.1); MEAN CORPUSCULAR HEMOGLOBIN 29.6 pg (28-32); MEAN CORPUSCULAR HGB CONC 31.9 g/dL (31-35); MEAN CORPUSCULAR VOLUME 92.8 fL (81-99); MONOCYTES # (AUTO) 0.8 (0.2-0.8); MONOCYTES % 7.2 % (4.4-11.3); NEUTROPHILS # (AUTO) 6.7 (2.1-6.9); NEUTROPHILS % 64.2 % (38.7-80.0); PLATELET COUNT 220 x10e3/uL (140-360); RED BLOOD COUNT 4.56 x10e6/uL (3.6-5.1); RED CELL DISTRIBUTION WIDTH 13.4 % (11.7-14.4)
[2021-08-11] MEDS ORDERED: ALBUTEROL/IPRATROPIUM 3 ML NEB NEB ONE ×2 (12:00→13:15)
[2021-08-11 12:08] LABS: INR 0.87; PARTIAL THROMBOPLASTIN TIME 20.5 seconds (23.8-35.5); PROTHROMBIN TIME 12.5 seconds (11.9-14.5)
[2021-08-11 12:10] LABS: ALBUMIN 4.1 g/dL (3.5-5.0); ALBUMIN/GLOBULIN RATIO 0.9 (0.8-2.0); ANION GAP 16.1 mmol/L (8-16); CALCIUM 9.2 mg/dL (8.4-10.2); CREATININE, SERUM 0.76 mg/dL (0.57-1.11); POTASSIUM 4.1 mmol/L (3.5-5.1)
[2021-08-11 12:17] LABS: CREATINE KINASE MB 4.8 ng/mL (0-5.0)
[2021-08-11] MEDS ORDERED: SODIUM CHLORIDE 0.9% 1000ML 1,000 ML IV ONE (12:30)
[2021-08-11] MEDS ORDERED: ALBUTEROL/IPRATROPIUM 3 ML NEB ONE (13:21)
[2021-08-11] MEDS ORDERED: ALBUTEROL SULF 0.083% NEB SOLN 3 ML NEB ONE (13:22)
[2021-08-11] MEDS ORDERED: DEXAMETHASONE SOD PHOS 10 MG/1 ML VIAL ONE (13:26)
[2021-08-11] MEDS ORDERED: DEXAMETHASONE SOD PHOS 10 MG/1 ML VIAL IV ONE (14:00)
[2021-08-11 14:30] LABS: AMPHETAMINES SCREEN,URINE POSITIVE (NEGATIVE); BENZODIAZEPINES SCREEN,URINE POSITIVE (NEGATIVE); PHENCYCLIDINE SCREEN,URINE NEGATIVE (NEGATIVE)
[2021-08-11 14:32] LABS: CLARITY,URINE CLEAR (CLEAR); COLOR,URINE YELLOW (YELLOW); KETONES,URINE NEGATIVE (NEGATIVE); LEUKOCYTE ESTERASE ,URINE NEGATIVE (NEGATIVE); NITRITE,URINE NEGATIVE (NEGATIVE); PROTEIN,URINE DIPSTICK NEGATIVE (NEGATIVE); URINE UROBILINOGEN 0.2 mg/dL (0.2 - 1)
[2021-08-11 14:39] LABS: BACTERIA,URINE FEW /HPF; EPITHELIAL CELLS,URINE RARE /LPF; WBC,URINE (MAN) 0-5 /HPF (0-5)
[2021-08-11] MEDS ORDERED: LORAZEPAM INJ 2 MG/ML VIAL IV PRN (15:15)
[2021-08-11] MEDS: SODIUM CHLORIDE 0.9% 1000ML 1,000 ML IV SCH (15:42)
[2021-08-11] MEDS: CEFTRIAXONE 2 GM in SODIUM CHLORIDE 0.9% 100 ML IV SCH (15:42)
[2021-08-11 16:29] VITALS: BP 152/71
[2021-08-11 18:37] VITALS: BP 152/71
[2021-08-11 19:15] LABS: CREATINE KINASE MB 5.5 ng/mL (0-5.0)
[2021-08-11 20:03] VITALS: BP 154/77
[2021-08-11] MEDS: METHYLPREDNISOLONE SOD SUCC 40 MG/ML VIAL 1ML IV SCH (21:59)
[2021-08-11] MEDS ORDERED: METHYLPREDNISOLONE SOD SUCC 125 MG/2ML VIAL IV SCH (22:00)
[2021-08-11] MEDS: ALBUTEROL/IPRATROPIUM 3 ML NEB NEB SCH (23:44)
[2021-08-12] VITALS (9 sets, daily range): BP systolic 133–149; BP diastolic 70–87
[2021-08-12 01:15] LABS: ABG PCO2 47 mmHg (35-45); ABG PH 7.38 (7.35-7.45)
[2021-08-12 01:16] LABS: ABG HCO3 28 mmol/L (22-26); ABG PO2 60 mmHg (80-105); ABG TCO2 29
[2021-08-12] MEDS: SODIUM CHLORIDE 0.9% 1000ML 1,000 ML IV SCH ×3 (02:41→23:15)
[2021-08-12] MEDS: ALBUTEROL/IPRATROPIUM 3 ML NEB NEB SCH ×6 (03:44→23:15)
[2021-08-12] MEDS: METHYLPREDNISOLONE SOD SUCC 40 MG/ML VIAL 1ML IV SCH ×3 (05:16→22:00)
[2021-08-12 06:17] LABS: BASOPHILS % 0.3 % (0.0-1.0); HEMATOCRIT 40.5 % (34.2-44.1); HEMOGLOBIN 12.5 g/dL (12.0-16.0); LYMPHOCYTES # (AUTO) 1.3 (1.0-3.2); LYMPHOCYTES % 11.3 % (18.0-39.1); MEAN CORPUSCULAR HEMOGLOBIN 29.4 pg (28-32); MEAN CORPUSCULAR HGB CONC 30.9 g/dL (31-35); MEAN CORPUSCULAR VOLUME 95.3 fL (81-99); MONOCYTES # (AUTO) 0.3 (0.2-0.8); MONOCYTES % 2.5 % (4.4-11.3); NEUTROPHILS # (AUTO) 10.1 (2.1-6.9); NEUTROPHILS % 85.5 % (38.7-80.0); PLATELET COUNT 242 x10e3/uL (140-360); RED BLOOD COUNT 4.25 x10e6/uL (3.6-5.1); RED CELL DISTRIBUTION WIDTH 13.8 % (11.7-14.4)
[2021-08-12 06:38] LABS: ALBUMIN 3.5 g/dL (3.5-5.0); ALBUMIN/GLOBULIN RATIO 0.9 (0.8-2.0); ANION GAP 14.3 mmol/L (8-16); CALCIUM 8.9 mg/dL (8.4-10.2); CREATININE, SERUM 0.7 mg/dL (0.57-1.11); POTASSIUM 4.3 mmol/L (3.5-5.1)
[2021-08-12] MEDS: BUDESONIDE 0.5MG/2 ML NEB INH SCH ×2 (07:10→20:15)
[2021-08-12 07:49] LABS: CREATINE KINASE MB 3.1 ng/mL (0-5.0)
[2021-08-12] MEDS ORDERED: MINERAL OIL/PETROLAT/GLYCERI 6OZ BTL TOP PRN (10:45)
[2021-08-12 11:24] LABS: FREE THYROXINE INDEX 2.3116 (1.4-3.8); THYROID STIMULATING HORMONE 0.5 uIU/mL (0.350-4.940)
[2021-08-12] MEDS: DULOXETINE HCL 30 MG DELAYED RELEASE PO SCH (14:01)
[2021-08-12] MEDS: CEFTRIAXONE 2 GM in SODIUM CHLORIDE 0.9% 100 ML IV SCH (15:20)
[2021-08-13] VITALS (9 sets, daily range): BP systolic 134–180; BP diastolic 69–99
[2021-08-13] MEDS: ALBUTEROL/IPRATROPIUM 3 ML NEB NEB SCH ×6 (03:15→23:32)
[2021-08-13 05:10] LABS: BASOPHILS % 0.2 % (0.0-1.0); HEMOGLOBIN 11.6 g/dL (12.0-16.0); LYMPHOCYTES # (AUTO) 2.1 (1.0-3.2); LYMPHOCYTES % 10.3 % (18.0-39.1); MEAN CORPUSCULAR HEMOGLOBIN 30.1 pg (28-32); MEAN CORPUSCULAR HGB CONC 32.2 g/dL (31-35); MEAN CORPUSCULAR VOLUME 93.3 fL (81-99); NEUTROPHILS # (AUTO) 16.9 (2.1-6.9); NEUTROPHILS % 83.5 % (38.7-80.0); PLATELET COUNT 235 x10e3/uL (140-360); RED BLOOD COUNT 3.86 x10e6/uL (3.6-5.1); RED CELL DISTRIBUTION WIDTH 14.1 % (11.7-14.4)
[2021-08-13 05:42] LABS: ANION GAP 12.2 mmol/L (8-16); CALCIUM 8.7 mg/dL (8.4-10.2); CREATININE, SERUM 0.71 mg/dL (0.57-1.11); POTASSIUM 4.2 mmol/L (3.5-5.1)
[2021-08-13] MEDS: BUDESONIDE 0.5MG/2 ML NEB INH SCH ×2 (06:55→19:07)
[2021-08-13] MEDS: SODIUM CHLORIDE 0.9% 1000ML 1,000 ML IV SCH ×2 (07:28→18:04)
[2021-08-13] MEDS: DULOXETINE HCL 30 MG DELAYED RELEASE PO SCH (08:42)
[2021-08-13] MEDS ORDERED: SERTRALINE HCL 50 MG TAB PO SCH (09:00)
[2021-08-13] MEDS: CEFTRIAXONE 2 GM in SODIUM CHLORIDE 0.9% 100 ML IV SCH (15:00)
[2021-08-13] MEDS ORDERED: KETOROLAC TROMETHAMINE 30 MG/ML VIAL IV NR (18:59)
[2021-08-13] MEDS ORDERED: METHYLPREDNISOLONE SOD SUCC 40 MG/ML VIAL 1ML IV NR (19:00)
[2021-08-13] MEDS ORDERED: ACETAMINOPHEN 325 MG TAB PO PRN (19:00)
[2021-08-14] MEDS: ALBUTEROL/IPRATROPIUM 3 ML NEB NEB SCH ×2 (03:11→08:10)
[2021-08-14 05:34] VITALS: BP 158/92
[2021-08-14] MEDS: SODIUM CHLORIDE 0.9% 1000ML 1,000 ML IV SCH (06:07)
[2021-08-14 06:14] LABS: ANION GAP 17.3 mmol/L (8-16); CALCIUM 9.6 mg/dL (8.4-10.2); CREATININE, SERUM 0.71 mg/dL (0.57-1.11); POTASSIUM 4.3 mmol/L (3.5-5.1)
[2021-08-14 07:12] LABS: BASOPHILS # (AUTO) 0.1 (0.0-0.1); BASOPHILS % 0.7 % (0.0-1.0); EOSINOPHILS # (AUTO) 0.7 (0.0-0.4); EOSINOPHILS % 5.9 % (0.0-6.0); HEMATOCRIT 41.3 % (34.2-44.1); HEMOGLOBIN 13.3 g/dL (12.0-16.0); LYMPHOCYTES # (AUTO) 2.9 (1.0-3.2); MEAN CORPUSCULAR HEMOGLOBIN 29.2 pg (28-32); MEAN CORPUSCULAR HGB CONC 32.2 g/dL (31-35); MEAN CORPUSCULAR VOLUME 90.6 fL (81-99); MONOCYTES # (AUTO) 0.9 (0.2-0.8); MONOCYTES % 7.8 % (4.4-11.3); NEUTROPHILS % 60.1 % (38.7-80.0); PLATELET COUNT 221 x10e3/uL (140-360); RED BLOOD COUNT 4.56 x10e6/uL (3.6-5.1); RED CELL DISTRIBUTION WIDTH 13.7 % (11.7-14.4)
[2021-08-14 07:47] VITALS: BP 131/71
[2021-08-14] MEDS: BUDESONIDE 0.5MG/2 ML NEB INH SCH (08:10)
[2021-08-14 09:00] VITALS: BP 131/71
[2021-08-14] MEDS: DULOXETINE HCL 30 MG DELAYED RELEASE PO SCH (09:38)
[2021-08-14 11:52] VITALS: BP 164/99
[2021-08-14] MEDS ORDERED: PREDNISONE20 MG PO (14:23)
[2021-08-14] MEDS ORDERED: ALBUTEROL1.25 MG/3 NEB (14:24)
[2021-08-14 15:48] VITALS: BP 126/74
== END 2021-08-14 17:48 | disposition home or self-care (01) | DRG 190 ==
LOC: ER 11:32 → ERHOLD 15:25 → MED/SURG3 16:20
PROVIDERS: ADMIT Internal Medicine; ATTEND Internal Medicine
PROC: 02HV33Z Insertion of Infusion Device into Superior Vena Cava, Percutaneous Approach (ICD-10-PCS; principal; 2021-08-13)
DX: J44.1 Chronic obstructive pulmonary disease with (acute) exacerbation (principal); J18.9 Pneumonia, unspecified organism; E84.9 Cystic fibrosis, unspecified; J44.0 Chronic obstructive pulmonary disease with (acute) lower respiratory infection; F17.210 Nicotine dependence, cigarettes, uncomplicated; E05.90 Thyrotoxicosis, unspecified without thyrotoxic crisis or storm; Z20.822 Contact with and (suspected) exposure to COVID-19; D72.828 Other elevated white blood cell count; T38.0X5A Adverse effect of glucocorticoids and synthetic analogues, initial encounter
CPT/HCPCS: 36415; 36600; 71045; 80048; 80053; 80307; 81001; 82550; 82553; 82805; 83735; 83880; 84436; 84439; 84443; 84479; 84481; 84484; 85025; 85610; 85730; 86376; 87040; 87086; 93005; 94640; 94799; 96361; 99284; J0456; J0696; J1100; J2920; J7030; J7050; U0002